=== PATIENT | male | born 1930 | race Two or more races ===

== ENCOUNTER 2019-11-10 15:48 | Outpatient (CLI) | payer OTHER | END 2019-11-10 17:10 | disposition home or self-care (01) | LOC: OFIC 805 15:48 | PROVIDERS: ATTEND Otolaryngology Otology & Neurotology | DX: H66.3X2 Other chronic suppurative otitis media, left ear (principal); H66.012 Acute suppurative otitis media with spontaneous rupture of ear drum, left ear; H91.8X2 Other specified hearing loss, left ear ==